=== PATIENT | male | born 1990 | race Caucasian/White ===

== ENCOUNTER 2016-09-20 15:12 | Emergency (ER) | payer SELFPAY ==
--- NOTE | 2016-09-20 16:06 | RAD ---
INDICATION: Posterior and lateral ankle pain one day after injury COMPARISON: None. TECHNIQUE: 3 views of the left ankle were obtained. FINDINGS: The well corticated bones exhibit normal alignment. Joint spaces appear maintained. No fracture is seen. IMPRESSION: Normal ankle radiograph. If the patient's symptoms persist, follow-up imaging is recommended.
--- NOTE | 2016-09-20 16:43 | UC ---
Lower Extremity/Ankle HPI - HPI Summary HPI Summary: 26 y/o male presents to the urgent care c/o left ankle pain since last night after twisting his ankle on an uneven sidewalk. Pt states he can bear weigh and walk, pain is 6/10 w/ walking and at touch, and mild swelling on the lateral side of ankle. Pain increase today when he had to do a lot of standing and lifting at work. He has not taking anything to alleviate the symptoms. Pt denies numbness and tingling over his toes, fever, SOB, chest pain , N/V/D. Pt has not other complains - History of Current Complaint Hx Obtained From: Patient Onset/Duration: Sudden Onset, Lasting Hours, Still Present Severity Initially: Mild Severity Currently: Moderate Pain Intensity: 6 Pain Scale Used: 0-10 Numeric Aggravating Factor(s): Standing, Ambulation Alleviating Factor(s): Rest Able to Bear Weight: Yes - Risk Factors Gout Risk Factors: Negative DVT Risk Factors: Negative Septic Arthritis Risk Factor: Negative <Janeth Hopkins - Last Filed: 09/20/16 17:41> <Annette Kellogg - Last Filed: 09/20/16 18:45> - History of Current Complaint Chief Complaint: UCLowerExtremity Stated Complaint: ANKLE INJURY Time Seen by Provider: 09/20/16 16:42 - Allergies/Home Medications Allergies/Adverse Reactions: Allergies Allergy/AdvReac Type Severity Reaction Status Date / Time Cephalosporins Allergy Severe Hives Verified 01/19/16 16:44 PMH/Surg Hx/FS Hx/Imm Hx Previously Healthy: Yes - Surgical History Surgical History: Yes Surgery Procedure, Year, and Place: Herniorhaphy and Hydrocele Repair, 2004. Tonsillectomy, 1993 - Family History Known Family History: Positive: Diabetes - Social History Occupation: Employed Full-time Lives: With Family Alcohol Use: None Substance Use Type: None Smoking Status (MU): Heavy Every Day Tobacco Smoker Type: Cigarettes Amount Used/How Often: 1/2 PPD Length of Time of Smoking/Using Tobacco: 6 Years Have You Smoked in the Last Year: Yes Household Exposure Type: Cigarettes <Janeth Hopkins - Last Filed: 09/20/16 17:41> Review of Systems Constitutional: Negative Skin: Negative Eyes: Negative ENT: Negative Respiratory: Negative Cardiovascular: Negative Gastrointestinal: Negative Genitourinary: Negative Motor: Negative Neurovascular: Negative Musculoskeletal: Other: - LF ankle pain s/p twisting Neurological: Negative Psychological: Negative All Other Systems Reviewed And Are Negative: Yes <Janeth Hopkins - Last Filed: 09/20/16 17:41> Physical Exam Triage Information Reviewed: Yes Appearance: Well-Appearing, No Pain Distress, Well-Nourished, Thin Vital Signs: Initial Vital Signs Temp 98.6 F 09/20/16 15:28 Pulse 90 09/20/16 15:28 Resp 16 09/20/16 15:28 Pulse Ox 100 09/20/16 15:28 Vital Signs Reviewed: Yes Eye Exam: Normal Eyes: Positive: Conjunctiva Clear - PERRLA, EOMI, fundi grossly normal ENT Exam: Normal ENT: Positive: Normal ENT inspection, Hearing grossly normal, Pharynx normal, TMs normal Dental Exam: Normal Neck exam: Normal Neck: Positive: Supple, Nontender, No Lymphadenopathy Respiratory Exam: Normal Respiratory: Positive: Chest non-tender, Lungs clear, Normal breath sounds Cardiovascular Exam: Normal Cardiovascular: Positive: RRR, No Murmur, Pulses Normal, Brisk Capillary Refill Abdominal Exam: Normal Abdomen Description: Positive: Nontender, No Organomegaly, Soft. Negative: CVA Tenderness (R), CVA Tenderness (L) Bowel Sounds: Positive: Present Musculoskeletal: Positive: Strength Intact, Other: - Left ankle lateral malleolus tender to palapation w/ mild swelling, no echymosis or bruises observed. Decrease ROM due to pain. Positive sensation, capillary refill brisk, pulses WNL. <Janeth Hopkins - Last Filed: 09/20/16 17:41> Vital Signs: Initial Vital Signs Temp 98.6 F 09/20/16 15:28 Pulse 90 09/20/16 15:28 Resp 16 09/20/16 15:28 Pulse Ox 100 09/20/16 15:28 <Annette Kellogg - Last Filed: 09/20/16 18:45> Lower Extremity Course/Dx - Course Course Of Treatment: 26 y/o male presents to the urgent care c/o left ankle pain since last night after twisting his ankle on an uneven sidewalk. Pt states he can bear weigh and walk, pain is 6/10 w/ walking and at touch, and mild swelling on the lateral side of ankle. Pain increase today when he had to do a lot of standing and lifting at work. He has not taking anything to alleviate the symptoms. Pt denies numbness and tingling over his toes, fever, SOB, chest pain , N/V/D. Hx obtained. PE abnormal findings:Left ankle lateral malleolus tender to palapation w/ mild swelling, no echymosis or bruises observed. Decrease ROM due to pain. Positive sensation, capillary refill brisk, pulses WNL. LF ankle X-ray ordered. Impression: no fracture, normal radiograh. Pt Left ankle immobilized w/ gel splin and given crutches. Advised RICE and if symptoms do not improve to f/u with PCP or orthopedic for further management. Pt understood and agreed and left the clinic ambulating w/ crutches. - Differential Dx/Diagnosis Differential Diagnosis/HQI/PQRI: Fracture (Closed), Sprain, Strain, Tendonitis Provider Diagnoses: 1-Left ankle sprain <Janeth Hopkins - Last Filed: 09/20/16 17:41> Discharge <Janeth Hopkins - Last Filed: 09/20/16 17:41> <Annette Kellogg - Last Filed: 09/20/16 18:45> - Discharge Plan Condition: Stable Disposition: HOME Prescriptions: Ibuprofen TAB* [Motrin TAB* 800 MG] 800 mg PO Q6H #20 tab Patient Education Materials: Ankle Sprain (ED) Forms: *Work Release Referrals: [facility] [place] [facility] [Outside] - 1 Week Tony Briseno MD [Medical Doctor] - 1 Week No Primary Care Phys,NOPCP [Primary Care Provider] - Additional Instructions: Please take ibuprofen as instructed after meals to alleviate pain and swelling. Keep your ankle immobilized, apply ice and rest, do not bear weight until symptoms resolve. If symptoms do not improve or worsen please return to the urgent care or f/u with your PCP or orthopedic in 1 week for further evaluation and treatment. Attestation Statement User Type: Provider - I was available for consult. This patient was seen by the MCKAYLA. The patient was not presented to, seen by, or examined by me. -Marco <Annette Kellogg - Last Filed: 09/20/16 18:45>
== END 2016-09-20 17:10 | disposition home or self-care (01) ==
LOC: UCEAST 15:12
DX: S93.402A Sprain of unspecified ligament of left ankle, initial encounter (principal); F17.210 Nicotine dependence, cigarettes, uncomplicated; X50.1XXA Overexertion from prolonged static or awkward postures, initial encounter; Y93.01 Activity, walking, marching and hiking
CPT/HCPCS: 99213; G0463

== ENCOUNTER 2018-02-01 02:09 | Emergency (ER) | payer SELFPAY ==
[2018-02-01] MEDS ORDERED: Tetan/Diph/Pertus SYR(Tdap)* 0.5 ML SYR(BOOSTRIX) use SYR IM ONE (02:29)
--- NOTE | 2018-02-01 02:31 | ED ---
Lower Extremity - HPI Summary HPI Summary: This patient is a 28 year old M presenting to [facility] with a chief complaint of a left foot laceration since 01:30 today. His microwave didnt work so he kicked it out of hunger. The patient rates the pain 9/10 in severity. Patient is unsure of when his last tetanus shot was. He denies any other health issues. Patient is a smoker, does not drink alcohol, and does not use any recreational drugs. - History of Current Complaint Chief Complaint: EDLacSutureRecheck Stated Complaint: LAC ON LT FOOT Time Seen by Provider: 02/01/18 02:20 Hx Obtained From: Patient Mechanism Of Injury: Blunt Trauma Onset of Pain: Immediate, Post Accident Onset/Duration: Still Present Severity Initially: Severe Severity Currently: Severe Pain Intensity: 9 Pain Scale Used: 0-10 Numeric Timing: Constant Location: Is Discrete @ - Left foot - Allergies/Home Medications Allergies/Adverse Reactions: Allergies Allergy/AdvReac Type Severity Reaction Status Date / Time Cephalosporins Allergy Hives Verified 02/01/18 02:21 PMH/Surg Hx/FS Hx/Imm Hx Endocrine/Hematology History: Denies: Hx Diabetes, Hx Thyroid Disease Cardiovascular History: Denies: Hx Hypertension Respiratory History: Denies: Hx Asthma, Hx Chronic Obstructive Pulmonary Disease (COPD) GI History: Denies: Hx Ulcer - Surgical History Surgery Procedure, Year, and Place: Herniorhaphy and Hydrocele Repair, 2004. Tonsillectomy, 1993 - Immunization History Date of Tetanus Vaccine: unknown Infectious Disease History: No Infectious Disease History: Denies: Hx Clostridium Difficile, Hx Hepatitis, Hx Human Immunodeficiency Virus (HIV), Hx of Known/Suspected MRSA, Hx Shingles, Hx Tuberculosis, Hx Known/ Suspected VRE, Hx Known/Suspected VRSA, History Other Infectious Disease, Traveled Outside the [place] in Last 30 Days - Family History Known Family History: Positive: Diabetes - Social History Occupation: Unemployed Alcohol Use: None Substance Use Type: Reports: None Smoking Status (MU): Heavy Every Day Tobacco Smoker Type: Cigarettes Amount Used/How Often: 1/2 PPD Length of Time of Smoking/Using Tobacco: 6 Years Have You Smoked in the Last Year: Yes Review of Systems Negative: Fever Positive: Other - Laceration on his lower left foot All Other Systems Reviewed And Are Negative: Yes Physical Exam - Summary Physical Exam Summary: Appearance: Well appearing, no pain distress Skin: 5.5 cm skin tear avulsion on the lateral plantar surface of the left forefoot Head/face: normal Eyes: EOMI, KAYCE ENT: mucous membranes moist Neck: supple, non-tender Respiratory: CTA, breath sounds present Cardiovascular: RRR, pulses symmetrical Abdomen: non-tender, soft Bowel Sounds: present Musculoskeletal: normal, strength/ROM intact Neuro: normal, sensory motor intact, A&Ox3 Triage Information Reviewed: Yes Vital Signs On Initial Exam: Initial Vitals Temp Pulse Resp BP Pulse Ox 97.4 F 90 20 150/84 98 02/01/18 02:11 02/01/18 02:11 02/01/18 02:11 02/01/18 02:11 02/01/18 02:11 Vital Signs Reviewed: Yes Procedures - Laceration/Wound Repair Left foot Location: lower extremity - Left foot Description: Stellate Anesthesia: 1.0% - 5cc's, Lidocaine - posterior tibial nerve block Length, Depth and Shape: 5.5 cm long Laceration/Wound Explored: clean, no foreign body removed Closure: Single Layer Debridement: None Suture Type: Prolene - 3 O Number of Sutures: 7 Layer Closure?: No - Single layer Sterile Dressing Applied?: Yes Diagnostics - Vital Signs Vital Signs Temp Pulse Resp BP Pulse Ox 02/01/18 02:11 97.4 F 90 20 150/84 98 - Laboratory Lab Statement: Any lab studies that have been ordered have been reviewed, and results considered in the medical decision making process. Lower Extremity Course/Dx - Course Course Of Treatment: Nurse's note reviewed. Tetanus given, repaired after posterior tibial nerve block. Discharged with sterile dressing. - Diagnoses Differential Diagnosis/HQI/PQRI: Positive: Other - Plantar laceration, foreign body, skin flap Provider Diagnoses: Laceration of plantar aspect of left foot Discharge - Sign-Out/Discharge Documenting (check all that apply): Patient Departure - D/C - Discharge Plan Condition: Improved Disposition: HOME Patient Education Materials: Laceration (ED) Referrals: [facility] [Outside] Additional Instructions: Sutures to be removed in 10 days' time. Keep clean and dry. Dress with bacitracin ointment. Tylenol or ibuprofen as needed for discomfort. Return with concerns for infection, worse, new symptoms or other concerns. - Billing Disposition and Condition Condition: IMPROVED Disposition: Home - Attestation Statements Document Initiated by Martin: Yes Documenting Scribe: Dany Gonzales Provider For Whom Scribe is Documenting (Include Credential): Sreedhar Yuen MD Scribe Attestation: I, Dany Gonzales, scribed for Sreedhar Yuen MD on 02/01/18 at 0353. Scribe Documentation Reviewed: Yes Provider Attestation: The documentation as recorded by the Dany lockett accurately reflects the service I personally performed and the decisions made by me, Sreedhar Yuen MD Status of Scribe Document: Viewed
[2018-02-01 02:56] VITALS: BP 156/90
== END 2018-02-01 02:55 | disposition home or self-care (01) ==
LOC: ED 02:09
DX: S91.312A Laceration without foreign body, left foot, initial encounter (principal); Z23 Encounter for immunization; W22.09XA Striking against other stationary object, initial encounter; Y92.9 Unspecified place or not applicable; F17.210 Nicotine dependence, cigarettes, uncomplicated
CPT/HCPCS: 12002; 90471; 90715; 99282

== ENCOUNTER 2018-02-12 12:47 | Emergency (ER) | payer SELFPAY ==
[2018-02-12 12:55] VITALS: BP 153/92
[2018-02-12] MEDS ORDERED: Benzoin Compound STICK TOPICAL ONE (12:56)
--- NOTE | 2018-02-12 12:57 | UC ---
HPI Wound/Suture Re-check - HPI Summary HPI Summary: 7 sutures placed in bottom of left foot 11 days ago- patient has not wash injury but has changed the dressing daily (states that is what he was told to do ) would just proximal to fifth toe- no drainage streaking swelling fever or chills - History Of Current Complaint Chief Complaint: UCLaceration Stated Complaint: STITCH REMOVAL Time Seen by Provider: 02/12/18 12:56 Hx Obtained From: Patient Onset/Duration: Sudden Onset, Lasting Days - 11 Pain Intensity: 5 Pain Scale Used: 0-10 Numeric - Allergies/Home Medications Allergies/Adverse Reactions: Allergies Allergy/AdvReac Type Severity Reaction Status Date / Time Cephalosporins Allergy Hives Verified 02/12/18 12:55 PMH/Surg Hx/FS Hx/Imm Hx Previously Healthy: Yes - Surgical History Surgical History: Yes Surgery Procedure, Year, and Place: Hernia and Hydrocele Repair, 2004. Tonsillectomy, 1993 - Family History Known Family History: Positive: Diabetes - Social History Occupation: Unemployed Lives: With Family Alcohol Use: None Substance Use Type: None Smoking Status (MU): Heavy Every Day Tobacco Smoker Type: Cigarettes Amount Used/How Often: 1/2 PPD Length of Time of Smoking/Using Tobacco: 6 Years Have You Smoked in the Last Year: Yes Household Exposure Type: Cigarettes - Immunization History Most Recent Tetanus Shot: 02/01/18 Review of Systems All Other Systems Reviewed And Are Negative: Yes Constitutional: Positive: Negative Skin: Positive: Bruising - around wound on left foot, Other - wound well approximated Eyes: Positive: Negative ENT: Positive: Negative Respiratory: Positive: Negative Cardiovascular: Positive: Negative Gastrointestinal: Positive: Negative Genitourinary: Positive: Negative Motor: Positive: Negative Neurovascular: Positive: Negative Musculoskeletal: Positive: Negative Neurological: Positive: Negative Psychological: Positive: Negative Is Patient Immunocompromised?: No Physical Exam Triage Information Reviewed: Yes Appearance: Well-Appearing, No Pain Distress, Well-Nourished Vital Signs: Initial Vital Signs Temp 99 F 02/12/18 12:48 Pulse 96 02/12/18 12:48 Resp 16 02/12/18 12:48 BP 153/92 02/12/18 12:48 Pulse Ox 99 02/12/18 12:48 Vital Signs Reviewed: Yes Eye Exam: Normal Eyes: Positive: Conjunctiva Clear ENT Exam: Normal ENT: Positive: Normal ENT inspection, Hearing grossly normal. Negative: Pharynx normal, Trismus, Muffled voice, Hoarse voice Dental Exam: Normal Neck exam: Normal Neck: Positive: Supple, Nontender, No Lymphadenopathy Respiratory Exam: Normal Respiratory: Positive: Chest non-tender, No respiratory distress, No accessory muscle use Cardiovascular Exam: Normal Cardiovascular: Positive: RRR, Pulses Normal, Brisk Capillary Refill Musculoskeletal Exam: Normal Musculoskeletal: Positive: Strength Intact, ROM Intact, No Edema Neurological Exam: Normal Neurological: Positive: Alert, Muscle Tone Normal Psychological Exam: Normal Skin Exam: Normal Skin: Positive: Other - healing wound lateral distal left foot-wound well approximated Re-Evaluation - Re-Evaluation First Eval Change: Improved - foot soaked and washed -sutures removed-wound remained well approximated--steri stips applied bulky dressing and aba wrap applied Course/Dx - Course Course Of Treatment: remain non-weightbearing for 5 days, use post op shoe when he does start weight bearing-mild wash, let steri strips fall off on their own- folloow blood pressure with pcp - Diagnosis Provider Diagnosis: Encounter for removal of sutures Discharge - Sign-Out/Discharge Documenting (check all that apply): Patient Departure All imaging exams completed and their final reports reviewed: No Studies - Discharge Plan Condition: Stable Disposition: HOME Patient Education Materials: Hypertension (ED), Steristrips (ED), Stitches Removal (ED) Referrals: [facility] [Outside] - 1 Week Additional Instructions: continue no weight bearing for 5 days---when you begin weight bearing use post op sjoe for 5 days - Billing Disposition and Condition Condition: STABLE Disposition: Home
== END 2018-02-12 13:41 | disposition home or self-care (01) ==
LOC: UCEAST 12:47
DX: Z48.02 Encounter for removal of sutures (principal); F17.210 Nicotine dependence, cigarettes, uncomplicated; Z88.1 Allergy status to other antibiotic agents